=== PATIENT | male | born 1990 | race Caucasian/White ===

== ENCOUNTER 2016-11-24 13:48 | Emergency (ER) | payer OTHER ==
[2016-11-24] MEDS ORDERED: KETOROLAC 30 MG/ML VIAL (J1885) As Ordered ONE (14:03)
--- NOTE | 2016-11-24 15:29 | EDDOCDS ---
Physician Documentation [facility] Name: Robert Moy Age: 26 yrs Sex: Male : 1990 Arrival Date: 11/24/2016 Time: 13:48 Bed 18 Private MD: Disposition: 11/24 15:07 A printed prescription for a controlled substance(s) was provided because [facility] is not able to accept EPCS. Disposition: 11/24/16 15:03 Discharged to Home/Self Care. Impression: Acute pain, not elsewhere classified - thoracic strain. - Condition is Stable. - Discharge Instructions: Musculoskeletal Pain. - Prescriptions for Ibuprofen 600 mg Oral Tablet - take 1 tablet by ORAL route every 6 hours As needed take with food; 30 tablet. Cyclobenzaprine 10 mg Oral Tablet - take 1 tablet by ORAL route 3 times per day As needed; 15 tablet. - Medication Reconciliation, Local Pharmacy Hours form. - Follow up: [facility]; When: 2 - 3 days; Reason: Recheck today's complaints, Continuance of care. - Problem is new. - Symptoms have improved. Historical: - Allergies: no known allergies; - Home Meds: 1. none - PMHx: PTSD; Depression; - PSHx: none; - Social history: Smoking status: Patient states was never smoker of tobacco. No barriers to communication noted, The patient speaks fluent Kiswahili, Speaks appropriately for age. - Family history: Not pertinent. - : The pt / caregiver states he / she is not on anticoagulants. Home medication list is obtained from the patient. - Exposure Risk Screening:: None identified. Vital Signs: 13:56 BP 131 / 84; Pulse 82; Resp 16; Temp 97.1(O); Pulse Ox 96% on R/A; Weight 86.18 kg / ead 189.99 lbs (R); Height 5 ft. 8 in. (172.72 cm) (R); Pain 9/10; 14:11 BP 120 / 81 (auto/); ead 14:11 Pulse 90 MON; Pulse Ox 96% ; ead 14:26 BP 118 / 78 (auto/); ead 14:27 Pulse 90 MON; Pulse Ox 96% ; ead 14:41 BP 118 / 78 (auto/); ead 14:41 Pulse 84 MON; Pulse Ox 96% ; ead 14:56 BP 123 / 75 (auto/); ead 14:57 Pulse 86 MON; Resp 18; Pulse Ox 96% on R/A; ead 15:11 BP 115 / 72 (auto/); ead 15:11 Pulse 80 MON; Resp 16; Pulse Ox 96% ; ead 15:26 Temp 97.7(O); Pain 4/10; ead 13:56 Body Mass Index 28.89 (86.18 kg, 172.72 cm) ead MDM: 13:55 ketorolac 60 mg IM once ordered. ke 13:55 Diazepam 10 mg IM once ordered. ke 15:24 Financial registration complete. lg Administered Medications: 14:10 Drug: ketorolac 60 mg [ketorolac 30 mg/mL (1 mL) injection solution (2 mL)] Route: IM; ead Site: left deltoid; 14:48 Follow up: Response: No Adverse Reaction; Pain is decreased ead 14:10 Drug: Diazepam 10 mg [diazepam 5 mg/mL injection syringe (2 mL)] Route: IM; Site: right ead deltoid; 14:48 Follow up: Response: No Adverse Reaction; Pain is decreased ead 14:49 Follow up: Response: Confirmed pt not driving. ead Signatures: Ravindra Case Reg Reg lg Elsner, Karl, MANAGER AEROSPACE MANAGER AEROSPACE Claritza Avila,RN RN ead MTDD
--- NOTE | 2016-11-24 15:29 | EDDOCDS ---
Nurse's Notes [facility] Name: Robert Moy Age: 26 yrs Sex: Male : 1990 Arrival Date: 11/24/2016 Time: 13:48 Bed 18 Private MD: Diagnosis: Acute pain, not elsewhere classified-thoracic strain Presentation: 11/24 13:53 Presenting complaint: EMS states: pt c/o lower back pain and spasms, onset of pain ead approx 1 hour to arrival. pt denies known injury. Acute neurological deficits are not present. Mechanism of Injury: No Mechanism of Injury. Adult Sepsis Screening: The patient does not have new or worsening altered mentation. Patient's respiratory rate is less than 22. Systolic blood pressure is greater than 100. Patient has a qSOFA score of 0- Negative Sepsis Screen. Suicide/Homicide risk assessment- the patient denies having any suicidal and/or homicidal ideations and does not present with any other emotional, behavioral or mental health complaints. Status: Patient is not a residential service technician or dependent. Transition of care: patient was not received from another setting of care. 13:53 Acuity: ALDO Level 4 ead 13:53 Method Of Arrival: Ambulance ead Triage Assessment: 14:00 General: Appears in no apparent distress, uncomfortable, Behavior is anxious, ead cooperative. Pain: Location: back Pain currently is 9 out of 10 on a pain scale. HIV screening NA for this visit Offered previously. The patient is triaged at the bedside. See Assessment in Nurses Notes section of ED record. Neurological: Level of Consciousness is awake, alert, obeys commands, Oriented to person, place, time, Moves all extremities. Speech is normal, Facial symmetry appears normal. Respiratory: Airway is patent Respiratory effort is even, unlabored, Respiratory pattern is regular, symmetrical. Derm: Skin is pink, warm & dry. Musculoskeletal: Reports pain in back. Historical: - Allergies: no known allergies; - Home Meds: 1. none - PMHx: PTSD; Depression; - PSHx: none; - Social history: Smoking status: Patient states was never smoker of tobacco. No barriers to communication noted, The patient speaks fluent Greenlandic, Speaks appropriately for age. - Family history: Not pertinent. - : The pt / caregiver states he / she is not on anticoagulants. Home medication list is obtained from the patient. - Exposure Risk Screening:: None identified. Screenin:59 Screening information is obtained from the patient. Fall risk: No risks identified. ead Assistance ADL's: requires no assistance with activities of daily living. Abuse/DV Screen: The patient / caregiver reports he/she is: not in a situation that causes fear, pain or injury. Nutritional screening: No deficits noted. Advance Directives: Currently, there is no health care proxy. There is no Power of Master Merchandiser. home support is adequate. Assessment: 14:34 General: Appears in no apparent distress, Behavior is appropriate for age, cooperative. ead Neurological: No deficits noted. Respiratory: Airway is patent Respiratory effort is even, unlabored. Derm: Skin is pink, warm & dry. Musculoskeletal: Reports pain in left low back and right low back. 15:28 General: Appears in no apparent distress, comfortable, Behavior is appropriate for age, ead cooperative, pleasant. Neurological: No deficits noted. Respiratory: Airway is patent Respiratory effort is even, unlabored. Derm: Skin is pink, warm & dry. Vital Signs: 13:56 BP 131 / 84; Pulse 82; Resp 16; Temp 97.1(O); Pulse Ox 96% on R/A; Weight 86.18 kg (R); ead Height 5 ft. 8 in. (172.72 cm) (R); Pain 9/10; 14:11 BP 120 / 81 (auto/); ead 14:11 Pulse 90 MON; Pulse Ox 96% ; ead 14:26 BP 118 / 78 (auto/); ead 14:27 Pulse 90 MON; Pulse Ox 96% ; ead 14:41 BP 118 / 78 (auto/); ead 14:41 Pulse 84 MON; Pulse Ox 96% ; ead 14:56 BP 123 / 75 (auto/); ead 14:57 Pulse 86 MON; Resp 18; Pulse Ox 96% on R/A; ead 15:11 BP 115 / 72 (auto/); ead 15:11 Pulse 80 MON; Resp 16; Pulse Ox 96% ; ead 15:26 Temp 97.7(O); Pain 4/10; ead 13:56 Body Mass Index 28.89 (86.18 kg, 172.72 cm) ead Vitals: 13:48 Log In Time N/A - ambulance arrival. ead ED Course: 13:50 Patient visited by Yulia Hancock, Steel Box Toe Inserter. lbd 13:50 Claritza PattersonRN is Primary Nurse. lbd 13:50 Patient moved to Waiting lbd 13:50 Patient moved to 18 lbd 13:51 Johnnie Deluca FNP is [facility]. ke 13:51 Patient visited by Johnnie Deluca FNP. ke 13:51 Patient visited by Johnnie Deluca FNP. ke 13:55 Triage Initiated ead 14:10 Patient visited by Claritza Patterson RN. ead 14:40 Patient visited by Johnnie Deluca FNP. ke 14:49 Patient visited by Claritza Patterson RN. ead 15:01 The patient / caregiver is instructed regarding the plan of care and ED course. Patient ead has correct armband on for positive identification. Placed in gown. Bed in low position. Call light in reach. Side rails up X2. Pulse ox on. NIBP on. 15:01 No IV's were initiated during this patient's visit. No procedures done that require ead assistance. 15:02 [facility] is Referral Physician. ke Administered Medications: 14:10 Drug: ketorolac 60 mg [ketorolac 30 mg/mL (1 mL) injection solution (2 mL)] Route: IM; ead Site: left deltoid; 14:48 Follow up: Response: No Adverse Reaction; Pain is decreased ead 14:10 Drug: Diazepam 10 mg [diazepam 5 mg/mL injection syringe (2 mL)] Route: IM; Site: right ead deltoid; 14:48 Follow up: Response: No Adverse Reaction; Pain is decreased ead 14:49 Follow up: Response: Confirmed pt not driving. ead Order Results: There are currently no results for this order. Outcome: 15:01 No special radiology studies were completed. ead 15:03 Discharge ordered by Provider. ke 15:26 Discharge Assessment: Patient awake and alert. obeys commands, Oriented to person, ead place and time. patient administered narcotics - yes. Pt provided with safe discharge. The following High Risk Discharge criteria are identified: None. Discharged to home ambulatory, with family. Condition: improved. Discharge instructions given to patient, Instructed on discharge instructions, follow up and referral plans. medication usage, no driving heavy equipment, no drinking with medication, Demonstrated understanding of instructions, medications, Pt was receptive of discharge instructions/ teaching. Property sent home with patient. 15:28 Patient left the ED. ead Signatures: Yulia Hancock, Steel Box Toe Inserter Unit lbd Johnnie Deluca, PULP DRIER PULP DRIER Claritza Avila,RN RN ead MTDD
--- NOTE | 2016-11-26 16:29 | EDDOCDS ---
Physician Documentation [facility] Name: Robert Moy Age: 26 yrs Sex: Male : 1990 Arrival Date: 11/24/2016 Time: 13:48 Bed 18 Private MD: Disposition: 11/24 15:07 A printed prescription for a controlled substance(s) was provided because [facility] is not able to accept EPCS. Disposition: 11/24/16 15:03 Discharged to Home/Self Care. Impression: Acute pain, not elsewhere classified - thoracic strain. - Condition is Stable. - Discharge Instructions: Musculoskeletal Pain. - Prescriptions for Ibuprofen 600 mg Oral Tablet - take 1 tablet by ORAL route every 6 hours As needed take with food; 30 tablet. Cyclobenzaprine 10 mg Oral Tablet - take 1 tablet by ORAL route 3 times per day As needed; 15 tablet. - Medication Reconciliation, Local Pharmacy Hours form. - Follow up: [facility]; When: 2 - 3 days; Reason: Recheck today's complaints, Continuance of care. - Problem is new. - Symptoms have improved. Historical: - Allergies: no known allergies; - Home Meds: 1. none - PMHx: PTSD; Depression; - PSHx: none; - Social history: Smoking status: Patient states was never smoker of tobacco. No barriers to communication noted, The patient speaks fluent Khmer, Speaks appropriately for age. - Family history: Not pertinent. - : The pt / caregiver states he / she is not on anticoagulants. Home medication list is obtained from the patient. - Exposure Risk Screening:: None identified. Vital Signs: 13:56 BP 131 / 84; Pulse 82; Resp 16; Temp 97.1(O); Pulse Ox 96% on R/A; Weight 86.18 kg / ead 189.99 lbs (R); Height 5 ft. 8 in. (172.72 cm) (R); Pain 9/10; 14:11 BP 120 / 81 (auto/); ead 14:11 Pulse 90 MON; Pulse Ox 96% ; ead 14:26 BP 118 / 78 (auto/); ead 14:27 Pulse 90 MON; Pulse Ox 96% ; ead 14:41 BP 118 / 78 (auto/); ead 14:41 Pulse 84 MON; Pulse Ox 96% ; ead 14:56 BP 123 / 75 (auto/); ead 14:57 Pulse 86 MON; Resp 18; Pulse Ox 96% on R/A; ead 15:11 BP 115 / 72 (auto/); ead 15:11 Pulse 80 MON; Resp 16; Pulse Ox 96% ; ead 15:26 Temp 97.7(O); Pain 4/10; ead 13:56 Body Mass Index 28.89 (86.18 kg, 172.72 cm) ead MDM: 13:55 ketorolac 60 mg IM once ordered. ke 13:55 Diazepam 10 mg IM once ordered. ke 15:24 Financial registration complete. lg 20:37 T-Sheet-- Draft Copy was scanned into [employer] and attached to record. [facility] 11/25 08:23 [facility] Payment Agreement was scanned into [employer] and attached to record. lg Administered Medications: 11/24 14:10 Drug: ketorolac 60 mg [ketorolac 30 mg/mL (1 mL) injection solution (2 mL)] Route: IM; ead Site: left deltoid; 14:48 Follow up: Response: No Adverse Reaction; Pain is decreased ead 14:10 Drug: Diazepam 10 mg [diazepam 5 mg/mL injection syringe (2 mL)] Route: IM; Site: right ead deltoid; 14:48 Follow up: Response: No Adverse Reaction; Pain is decreased ead 14:49 Follow up: Response: Confirmed pt not driving. ead Signatures: Ravindra Case, Johnnie Marti lg, CHERRY PICKER OPERATOR Claritza Vogel RN RN ead Redder, Kathie klr The chart was reviewed and I authenticate all verbal orders and agree with the evaluation and treatment provided.Attachments: 20:37 T-Sheet-- Draft Copy [facility] 11/25 08:23 [facility] Payment Agreement lg Chart Complete MTDD
--- NOTE | 2016-11-26 16:29 | EDDOCDS ---
Physician Documentation [facility] Name: Robert Moy Age: 26 yrs Sex: Male : 1990 Arrival Date: 11/24/2016 Time: 13:48 Bed 18 Private MD: Disposition: 11/24 15:07 A printed prescription for a controlled substance(s) was provided because [facility] is not able to accept EPCS. Disposition: 11/24/16 15:03 Discharged to Home/Self Care. Impression: Acute pain, not elsewhere classified - thoracic strain. - Condition is Stable. - Discharge Instructions: Musculoskeletal Pain. - Prescriptions for Ibuprofen 600 mg Oral Tablet - take 1 tablet by ORAL route every 6 hours As needed take with food; 30 tablet. Cyclobenzaprine 10 mg Oral Tablet - take 1 tablet by ORAL route 3 times per day As needed; 15 tablet. - Medication Reconciliation, Local Pharmacy Hours form. - Follow up: [facility]; When: 2 - 3 days; Reason: Recheck today's complaints, Continuance of care. - Problem is new. - Symptoms have improved. Historical: - Allergies: no known allergies; - Home Meds: 1. none - PMHx: PTSD; Depression; - PSHx: none; - Social history: Smoking status: Patient states was never smoker of tobacco. No barriers to communication noted, The patient speaks fluent Turkish, Speaks appropriately for age. - Family history: Not pertinent. - : The pt / caregiver states he / she is not on anticoagulants. Home medication list is obtained from the patient. - Exposure Risk Screening:: None identified. Vital Signs: 13:56 BP 131 / 84; Pulse 82; Resp 16; Temp 97.1(O); Pulse Ox 96% on R/A; Weight 86.18 kg / ead 189.99 lbs (R); Height 5 ft. 8 in. (172.72 cm) (R); Pain 9/10; 14:11 BP 120 / 81 (auto/); ead 14:11 Pulse 90 MON; Pulse Ox 96% ; ead 14:26 BP 118 / 78 (auto/); ead 14:27 Pulse 90 MON; Pulse Ox 96% ; ead 14:41 BP 118 / 78 (auto/); ead 14:41 Pulse 84 MON; Pulse Ox 96% ; ead 14:56 BP 123 / 75 (auto/); ead 14:57 Pulse 86 MON; Resp 18; Pulse Ox 96% on R/A; ead 15:11 BP 115 / 72 (auto/); ead 15:11 Pulse 80 MON; Resp 16; Pulse Ox 96% ; ead 15:26 Temp 97.7(O); Pain 4/10; ead 13:56 Body Mass Index 28.89 (86.18 kg, 172.72 cm) ead MDM: 13:55 ketorolac 60 mg IM once ordered. ke 13:55 Diazepam 10 mg IM once ordered. ke 15:24 Financial registration complete. lg 20:37 T-Sheet-- Draft Copy was scanned into [employer] and attached to record. [facility] 11/25 08:23 [facility] Payment Agreement was scanned into [employer] and attached to record. lg Administered Medications: 11/24 14:10 Drug: ketorolac 60 mg [ketorolac 30 mg/mL (1 mL) injection solution (2 mL)] Route: IM; ead Site: left deltoid; 14:48 Follow up: Response: No Adverse Reaction; Pain is decreased ead 14:10 Drug: Diazepam 10 mg [diazepam 5 mg/mL injection syringe (2 mL)] Route: IM; Site: right ead deltoid; 14:48 Follow up: Response: No Adverse Reaction; Pain is decreased ead 14:49 Follow up: Response: Confirmed pt not driving. ead Signatures: Ravindra Case, Johnnie Marti lg, MIS SPECIALIST Claritza Vogel RN RN ead Redder, Kathie klr The chart was reviewed and I authenticate all verbal orders and agree with the evaluation and treatment provided.Attachments: 20:37 T-Sheet-- Draft Copy [facility] 11/25 08:23 [facility] Payment Agreement lg Chart Complete MTDD
--- NOTE | 2016-11-26 16:29 | EDDOCDS ---
Nurse's Notes [facility] Name: Robert Moy Age: 26 yrs Sex: Male : 1990 Arrival Date: 11/24/2016 Time: 13:48 Bed 18 Private MD: Diagnosis: Acute pain, not elsewhere classified-thoracic strain Presentation: 11/24 13:53 Presenting complaint: EMS states: pt c/o lower back pain and spasms, onset of pain ead approx 1 hour to arrival. pt denies known injury. Acute neurological deficits are not present. Mechanism of Injury: No Mechanism of Injury. Adult Sepsis Screening: The patient does not have new or worsening altered mentation. Patient's respiratory rate is less than 22. Systolic blood pressure is greater than 100. Patient has a qSOFA score of 0- Negative Sepsis Screen. Suicide/Homicide risk assessment- the patient denies having any suicidal and/or homicidal ideations and does not present with any other emotional, behavioral or mental health complaints. Status: Patient is not a financial service professional or dependent. Transition of care: patient was not received from another setting of care. 13:53 Acuity: ALDO Level 4 ead 13:53 Method Of Arrival: Ambulance ead Triage Assessment: 14:00 General: Appears in no apparent distress, uncomfortable, Behavior is anxious, ead cooperative. Pain: Location: back Pain currently is 9 out of 10 on a pain scale. HIV screening NA for this visit Offered previously. The patient is triaged at the bedside. See Assessment in Nurses Notes section of ED record. Neurological: Level of Consciousness is awake, alert, obeys commands, Oriented to person, place, time, Moves all extremities. Speech is normal, Facial symmetry appears normal. Respiratory: Airway is patent Respiratory effort is even, unlabored, Respiratory pattern is regular, symmetrical. Derm: Skin is pink, warm & dry. Musculoskeletal: Reports pain in back. Historical: - Allergies: no known allergies; - Home Meds: 1. none - PMHx: PTSD; Depression; - PSHx: none; - Social history: Smoking status: Patient states was never smoker of tobacco. No barriers to communication noted, The patient speaks fluent Mohawk, Speaks appropriately for age. - Family history: Not pertinent. - : The pt / caregiver states he / she is not on anticoagulants. Home medication list is obtained from the patient. - Exposure Risk Screening:: None identified. Screenin:59 Screening information is obtained from the patient. Fall risk: No risks identified. ead Assistance ADL's: requires no assistance with activities of daily living. Abuse/DV Screen: The patient / caregiver reports he/she is: not in a situation that causes fear, pain or injury. Nutritional screening: No deficits noted. Advance Directives: Currently, there is no health care proxy. There is no Power of Tea Tree Farmer. home support is adequate. Assessment: 14:34 General: Appears in no apparent distress, Behavior is appropriate for age, cooperative. ead Neurological: No deficits noted. Respiratory: Airway is patent Respiratory effort is even, unlabored. Derm: Skin is pink, warm & dry. Musculoskeletal: Reports pain in left low back and right low back. 15:28 General: Appears in no apparent distress, comfortable, Behavior is appropriate for age, ead cooperative, pleasant. Neurological: No deficits noted. Respiratory: Airway is patent Respiratory effort is even, unlabored. Derm: Skin is pink, warm & dry. Vital Signs: 13:56 BP 131 / 84; Pulse 82; Resp 16; Temp 97.1(O); Pulse Ox 96% on R/A; Weight 86.18 kg (R); ead Height 5 ft. 8 in. (172.72 cm) (R); Pain 9/10; 14:11 BP 120 / 81 (auto/); ead 14:11 Pulse 90 MON; Pulse Ox 96% ; ead 14:26 BP 118 / 78 (auto/); ead 14:27 Pulse 90 MON; Pulse Ox 96% ; ead 14:41 BP 118 / 78 (auto/); ead 14:41 Pulse 84 MON; Pulse Ox 96% ; ead 14:56 BP 123 / 75 (auto/); ead 14:57 Pulse 86 MON; Resp 18; Pulse Ox 96% on R/A; ead 15:11 BP 115 / 72 (auto/); ead 15:11 Pulse 80 MON; Resp 16; Pulse Ox 96% ; ead 15:26 Temp 97.7(O); Pain 4/10; ead 13:56 Body Mass Index 28.89 (86.18 kg, 172.72 cm) ead Vitals: 13:48 Log In Time N/A - ambulance arrival. ead ED Course: 13:50 Patient visited by Yulia Hancock, Oil And Gas Recruiter. lbd 13:50 Claritza PattersonRN is Primary Nurse. lbd 13:50 Patient moved to Waiting lbd 13:50 Patient moved to 18 lbd 13:51 [facility] Del[facility] ke 13:51 Patient visited by Johnnie Deluca FNP. ke 13:51 Patient visited by Johnnie Deluca FNP. ke 13:55 Triage Initiated ead 14:10 Patient visited by Claritza Patterson,GREGOR. ead 14:40 Patient visited by Johnnie Deluca FNP. ke 14:49 Patient visited by Claritza Patterson RN. ead 15:01 The patient / caregiver is instructed regarding the plan of care and ED course. Patient ead has correct armband on for positive identification. Placed in gown. Bed in low position. Call light in reach. Side rails up X2. Pulse ox on. NIBP on. 15:01 No IV's were initiated during this patient's visit. No procedures done that require ead assistance. 15:02 [facility] is Referral Physician. ke 20:37 T-Sheet-- Draft Copy was scanned into [employer] and attached to record. klr 11/25 08:23 [facility] Payment Agreement was scanned into [employer] and attached to record. lg Administered Medications: 11/24 14:10 Drug: ketorolac 60 mg [ketorolac 30 mg/mL (1 mL) injection solution (2 mL)] Route: IM; ead Site: left deltoid; 14:48 Follow up: Response: No Adverse Reaction; Pain is decreased ead 14:10 Drug: Diazepam 10 mg [diazepam 5 mg/mL injection syringe (2 mL)] Route: IM; Site: right ead deltoid; 14:48 Follow up: Response: No Adverse Reaction; Pain is decreased ead 14:49 Follow up: Response: Confirmed pt not driving. ead Order Results: There are currently no results for this order. Outcome: 15:01 No special radiology studies were completed. ead 15:03 Discharge ordered by Provider. ke 15:26 Discharge Assessment: Patient awake and alert. obeys commands, Oriented to person, ead place and time. patient administered narcotics - yes. Pt provided with safe discharge. The following High Risk Discharge criteria are identified: None. Discharged to home ambulatory, with family. Condition: improved. Discharge instructions given to patient, Instructed on discharge instructions, follow up and referral plans. medication usage, no driving heavy equipment, no drinking with medication, Demonstrated understanding of instructions, medications, Pt was receptive of discharge instructions/ teaching. Property sent home with patient. 15:28 Patient left the ED. lois Signatures: Yulia Hancock, Oil And Gas Recruiter Unit lbd Ravindra Case, Hunter Reg lg Johnnie Deluca, EVALUATOR Claritza Vogel,GREGOR RN Jasmin Pradhan Chart Complete MTDD
== END 2016-11-24 15:28 | disposition home or self-care (01) ==
LOC: M ED 13:48
DX: S23.3XXA Sprain of ligaments of thoracic spine, initial encounter (principal); S33.5XXA Sprain of ligaments of lumbar spine, initial encounter; X58.XXXA Exposure to other specified factors, initial encounter; Y92.89 Other specified places as the place of occurrence of the external cause; Y93.89 Activity, other specified; Y99.8 Other external cause status; F32.9 Major depressive disorder, single episode, unspecified; F43.10 Post-traumatic stress disorder, unspecified
CPT/HCPCS: 96372; 99283; J1885; J3360

== ENCOUNTER 2019-04-06 16:57 | Emergency (ER) | payer OTHER ==
[~2019-04-06] VITALS: Ht 172.7 cm; Wt 93.2 kg
[2019-04-06] MEDS ORDERED: KETOROLAC 60 MG/2 ML VIAL (J1885) IM ONE (17:15)
[2019-04-06] MEDS ORDERED: diazePAM 10 MG TAB PO ONE ×2 (17:15→18:30)
[2019-04-06] MEDS ORDERED: LIDOCAINE 5% (LIDODERM) PATCH TD ONE (17:15)
--- NOTE | 2019-04-06 18:19 | REPVR ---
EXAM: CT Lumbar Spine Without Contrast EXAM DATE/TIME: 04/06/2019 5:35 PM CLINICAL HISTORY: 29 years old, male; Injury or trauma; Injury history: Lifting; Initial encounter; Sprain or strain, lumbar ligaments; Additional info: Lifting heard pop, previous injury unknown type TECHNIQUE: Imaging protocol: Axial computed tomography images of the lumbar spine without intravenous contrast. Coronal and sagittal reformatted images were created and reviewed. Radiation optimization: All CT scans at this facility use at least one of these dose optimization techniques: automated exposure control; mA and/or kV adjustment per patient size (includes targeted exams where dose is matched to clinical indication); or iterative reconstruction. COMPARISON: No relevant prior studies available. FINDINGS: Vertebrae: No acute fracture. Normal alignment. L1-L2: No disc herniation. No spinal stenosis. No neural foraminal narrowing. L2-L3: No disc herniation. No spinal stenosis. No neural foraminal narrowing. L3-L4: No disc herniation. No spinal stenosis. No neural foraminal narrowing. L4-L5: No disc herniation. No spinal stenosis. No neural foraminal narrowing. L5-S1: No disc herniation. No spinal stenosis. No neural foraminal narrowing. Soft tissues: Unremarkable. IMPRESSION: Unremarkable spine. No acute findings Electronically signed by: Ling Harmon On 04/06/2019 18:19:04 PM
[2019-04-06 18:21] VITALS: BP 117/88
[2019-04-06] MEDS ORDERED: NAPR-837 PO (18:31)
[2019-04-06] MEDS ORDERED: ROBA500T PO (18:31)
[2019-04-06] MEDS ORDERED: **NOTE PATIENT COMMENT** MISC XX SCH (21:00)
== END 2019-04-06 18:42 | disposition home or self-care (01) ==
LOC: M ED 16:57
DX: S29.002A Unspecified injury of muscle and tendon of back wall of thorax, initial encounter (principal); X50.0XXA Overexertion from strenuous movement or load, initial encounter; Y92.9 Unspecified place or not applicable; Y93.9 Activity, unspecified; Y99.9 Unspecified external cause status
CPT/HCPCS: 72131; 96372; 99283; J1885

== ENCOUNTER → 2025-07-10 | Outpatient (CLI) | payer OTHER ==
[~2025-07-10] MED LIST: NAPR-837 PO; ROBA500T PO
== END ==
LOC: M WUC 12:15
PROVIDERS: ATTEND Internal Medicine
DX: M54.41 Lumbago with sciatica, right side (principal)